=== PATIENT | female | born 1995 | race Caucasian/White ===

== ENCOUNTER 2021-12-30 10:24 | Emergency (ER) | payer SELFPAY ==
[~2021-12-30] VITALS: Ht 167.6 cm; Wt 72.6 kg
[2021-12-30 10:46] VITALS: BP_SYST 112
[2021-12-30 12:29] VITALS: BP_SYST 112
== END 2021-12-30 12:27 | disposition home or self-care (01) ==
LOC: SED 10:24
DX: S60.912A Unspecified superficial injury of left wrist, initial encounter (principal); W17.89XA Other fall from one level to another, initial encounter; Y93.89 Activity, other specified; Y92.89 Other specified places as the place of occurrence of the external cause; Y99.8 Other external cause status
CPT/HCPCS: 99283